=== PATIENT | female | born 1965 ===

== ENCOUNTER 2017-11-25 09:04 | Emergency (ER) | payer MEDICAID, OTHER ==
[2017-11-25 09:29] VITALS: BP 128/71
--- NOTE | 2017-11-25 10:15 | UC ---
Back Pain HPI - HPI Summary HPI Summary: Pt presents with friend for low back pain s/p fall last week. Pt is does not speak or understand [place] - her friend with her today is translating. I am told that 1 week ago, pt was walking down her porch steps when she slipped on the wet ground. Feet went out from under her and she landed on her right side and rolled down the remaining 2 steps onto her left side. She did not hit her head or have LOC. At that time she had left side, right side, and lower back pain. She has been using a pain reliving gel and an OTC back brace with minimal relief. Today her only complaint is left lower back pain and right thigh pain. Denies numbness, tingling, loss of sensation, radiation of pain, loss of bowel or bladder control, dysuria, or previous injury. She is ambulating without assistance. - History of Current Complaint Chief Complaint: UCBackPain Stated Complaint: FELL BACK PAIN Time Seen by Provider: 11/25/17 10:04 Hx Obtained From: Family/Felt Checker Onset/Duration: Sudden Onset Timing: Lasting Days Severity Initially: Severe Severity Currently: Moderate Pain Intensity: 7 Pain Scale Used: 0-10 Numeric Character: Dull, Aching, Throbbing, Spasmodic Aggravating Factor(s): Movement, Bending Alleviating Factor(s): Rest, Position - Allergies/Home Medications Allergies/Adverse Reactions: Allergies Allergy/AdvReac Type Severity Reaction Status Date / Time No Known Allergies Allergy Verified 11/25/17 09:22 Home Medications: Home Medications Unknown Cholesterol Med 11/25/17 [History] Unknown Diabetes Med 11/25/17 [History] metFORMIN* [Glucophage 1000 MG TAB *] 11/25/17 [History] PMH/Surg Hx/FS Hx/Imm Hx Previously Healthy: Yes Endocrine History: Diabetes - Surgical History Surgical History: None - Family History Known Family History: Positive: Unknown - Social History Lives: With Family Alcohol Use: None Substance Use Type: None Smoking Status (MU): Never Smoked Tobacco Review of Systems Constitutional: Negative Skin: Negative Gastrointestinal: Negative Genitourinary: Negative Motor: Negative Neurovascular: Negative Musculoskeletal: Other: - Pain right thigh and lower back Neurological: Negative Psychological: Negative All Other Systems Reviewed And Are Negative: Yes Physical Exam Triage Information Reviewed: Yes Appearance: Well-Appearing, No Pain Distress, Well-Nourished Vital Signs: Initial Vital Signs Temp 97.5 F 11/25/17 09:23 Pulse 87 11/25/17 09:23 Resp 16 11/25/17 09:23 BP 128/71 11/25/17 09:23 Pulse Ox 100 11/25/17 09:23 Vital Signs Reviewed: Yes Neck: Positive: Supple, Other: - NTTP. FROM. Respiratory: Positive: Chest non-tender, Lungs clear, Normal breath sounds Cardiovascular: Positive: RRR, No Murmur, Pulses Normal - B/L LEs Abdomen Description: Positive: Nontender, No Organomegaly, Soft. Negative: CVA Tenderness (R), CVA Tenderness (L), Distended, Guarding Bowel Sounds: Positive: Present Musculoskeletal: Positive: Strength Intact - B/L LEs, ROM Intact - B/L LEs including dorsiflexion and plantar flexion, No Edema, Other: - TTP over left paraspinal muscles of lumbar region. TTP over right lateral thigh soft tissue. Negative SLR. Negative PEARL. Normal gait. Neurological: Positive: Alert, Other: - Sensations L3-S1 intact B/L. Psychological: Positive: Age Appropriate Behavior Skin: Positive: Other - No ecchymosis or abrasions. Back Pain Course/Dx - Course Course Of Treatment: XR lumbar spine: 1. NONDISPLACED FRACTURES OF THE TRANSVERSE PROCESSES OF L2, L3, L4 ON THE RIGHT. 2. STRAIGHTENING OF THE LUMBAR LORDOSIS. 3. DEGENERATIVE DISC DISEASE AND OSTEOARTHRITIS. I spoke with Dr. Keys from neurosurgery regarding XR and exam findings. He recommended this be managed conservatively. I asked if she should be referred to neurosurg and he said "no" and that this finding is "only interesting to radiologists and not to normal people". Toradol IM given today. Advised to try OTC ibuprofen prn and activities as tolerated. - Differential Dx/Diagnosis Differential Diagnosis/HQI/PQRI: Fracture, Strain, Sprain Provider Diagnoses: NONDISPLACED FRACTURES OF THE TRANSVERSE PROCESSES OF L2, L3 , L4 ON THE RIGHT. Fall. Low back spasm Discharge - Discharge Plan Condition: Stable Disposition: HOME Patient Education Materials: Back Pain (ED) Referrals: No Primary Care Phys,NOPCP [Primary Care Provider] - Additional Instructions: If you develop a fever, shortness of breath, chest pain, new or worsening symptoms - please call your PCP or go to the ED. 1) May take over the counter Ibuprofen 400mg to 600mg every 6-8 hours as needed for pain 2) If you develop increasing pain, numbness, tingling, or change in your bowel or bladder habits - please go to the Emergency Room.
--- NOTE | 2017-11-25 10:45 | RAD ---
HISTORY: Back pain, subacute trauma COMPARISONS: None VIEWS: 5 , Frontal, lateral, coned-down lateral sacral, and bilateral oblique views of the lumbar spine. FINDINGS: ALIGNMENT: There is straightening of the normal lumbar lordosis. VERTEBRAL BODIES: The vertebral body heights are normal. The interpedicular distances are normal. There is multilevel anterolateral marginal osteophyte formation. There are nondisplaced fractures of the transverse processes of L2, L3, and L4 on the right JOINTS: There is mild facet hypertrophic change. INTERVERTEBRAL DISCS: There is diffuse loss of intervertebral disc height. SOFT TISSUE: Unremarkable. OTHER: The pelvis is unremarkable. The lung bases are clear. IMPRESSION: 1. NONDISPLACED FRACTURES OF THE TRANSVERSE PROCESSES OF L2, L3, L4 ON THE RIGHT. 2. STRAIGHTENING OF THE LUMBAR LORDOSIS. 3. DEGENERATIVE DISC DISEASE AND OSTEOARTHRITIS.
[2017-11-25] MEDS ORDERED: Ketorolac INJ* 30 MG/ML 1 ML VIAL IM ONE (11:12)
== END 2017-11-25 11:35 | disposition home or self-care (01) ==
LOC: UCEAST 09:04
DX: S32.029A Unspecified fracture of second lumbar vertebra, initial encounter for closed fracture (principal); S32.039A Unspecified fracture of third lumbar vertebra, initial encounter for closed fracture; M62.830 Muscle spasm of back; S32.049A Unspecified fracture of fourth lumbar vertebra, initial encounter for closed fracture; W10.9XXA Fall (on) (from) unspecified stairs and steps, initial encounter; Y92.9 Unspecified place or not applicable; E11.9 Type 2 diabetes mellitus without complications; Z79.84 Long term (current) use of oral hypoglycemic drugs
CPT/HCPCS: 72110; 96372; 99201; G0463; J1885